=== PATIENT | male | born 1980 | race Two or more races ===

== ENCOUNTER 2023-02-17 09:09 | Outpatient (CLI) | payer OTHER | END 2023-02-17 09:12 | disposition home or self-care (01) | LOC: SONOGRAMA 09:09 | PROVIDERS: ATTEND Pathology Anatomic Pathology | DX: D34 Benign neoplasm of thyroid gland (principal); E04.9 Nontoxic goiter, unspecified; D44.2 Neoplasm of uncertain behavior of parathyroid gland ==